=== PATIENT | female | born 1965 | race Caucasian/White ===

== ENCOUNTER → 2019-12-22 15:49 | Outpatient (CLI) | payer BC, SELFPAY ==
--- NOTE | ~2019-12-22 | US_ITS ---
EXAMINATION: US venous doppler [facility] DATE: 12/22/2019 16:43 INDICATION: Lower limb edema. TECHNIQUE: Grayscale ultrasound images without and with compression and Doppler ultrasound images of the bilateral lower extremity veins were obtained. COMPARISON: None. FINDINGS: The visualized portions of right common femoral vein, profunda (deep) femoral vein, femoral vein, pop liteal vein, peroneal veins, posterior tibial veins, and greater saphenous vein outflow are patent. The visualized portions of left common femoral vein, profunda femoral vein, femoral vein, popliteal v ein, peroneal veins, posterior tibial veins, and greater saphenous vein outflow are patent. IMPRESSION: 1. No deep venous thrombosis. Reviewed, dictated and finalized at location A. [facility]
== END ==
PROVIDERS: PCP Internal Medicine; Visit Provider Internal Medicine
DX: M79.89 Other specified soft tissue disorders (principal); R79.1 Abnormal coagulation profile
CPT/HCPCS: 93970

== ENCOUNTER 2024-09-17 10:00 | Outpatient (RCR) | payer MEDICARE, SELFPAY ==
--- NOTE | 2024-08-31 16:21 | OPREHPOC ---
Outpatient Therapy Plan of Care This is a Multidisciplinary Plan of Care that may contain components documented by all disciplines (PT, OT, and ST.) PT Problem 1 PT Problem #1 Knowledge Deficit PT Goal 1 Goal / Goal Update 1. Patient will perform independent HEP 2. Patient will verbalize urge suppression strategies Target Visit 2 PT Problem 2 PT Problem #2 Impaired Strength PT Goal 1 Goal / Goal Update 1. Improve pelvic floor strength to 4/5 to reduce incontinence 2. Improve pelvic floor endurance to 10 seconds to reduce incontinence Target Visit 5 PT Problem 3 PT Problem #3 Impaired Functional ADLs PT Goal 1 Goal / Goal Update 1. Patient will be able to hold urge to void at least 30 minutes 2. Patient will report incontinence no more than 1 time per week 3. Patient will need no more than 2 pads per day Target Visit 5
--- NOTE | 2024-08-31 16:21 | PTOPEVAL1 ---
Assessment and note entered by Lennie Shah DPT Evaluation Information Assessment Status Evaluation ICD-10 Condition Codes (PT) Weakness R53.1,Urge incontinence N39.41,Mixed incontinence N39.46,Stress incontinence N39.3 Subjective Information Pt reports stress incontinence that started in 2016. Had been given an indwelling catheter the year prior due to CHF. Recently has been wearing a pad all the time, 7-8 a day. Incontinence 2 times per day. Uses a purewick at night. Voids 6-7 times a day. Can hold urge to void up to 10 minutes and does get urge incontinence when taking off her pants. Denies pain with urination. BM every other day since bariatric surgery in May. Denies fecal incontinence. No history of pelvic pain. Pt has never been . Uterine ablation in 2005. No b/b history. Patient goal: not drip all the time and not have to wear so many pads. Pt states if she goes out in the community she will not take her water pill and always knows where the bathroom is, sometimes does not go out because of concern about making it to the bathroom. Returns to [place] in 6 months. Recently saw urologist and goes back soon. Reported Pain Level Pain Score 0: Self Report Assessment PT Clinical Summary The patient is presenting to skilled therapy with a several year history of worsening stress and urge incontinence. She presents with decreased pelvic floor strength and endurance as well as decreased hip and abdominal strength which are contributing to her daily incontinence and difficulty holding urge to void more than 10 minutes. The patient reports going through 7-8 pads a day and avoiding taking her diuretic at times due to incontinence. She will highly benefit from skilled therapy to address functional strength in order to reduce incontinence and restore full function. Plan of Care Interventions Manual Therapy,Neuro Re-education,Patient/ Caregiver Education,Therapeutic Activities, Therapeutic Exercise PT Services Indicated Yes Treatment Frequency and 1 time a week for 5 visits Duration These treatments will address the objective and functional deficits as defined above. The patient will be advanced safely and appropriately in order for the patient to progress towards his/her prior level of function. Additional exercises will be introduced and as well as a comprehensive home exercise program upon discharge, if needed, ?to ensure carryover of functional gains achieved in the clinic. This treatment plan has been reviewed and agreement upon by the patient.
--- NOTE | 2024-10-08 11:09 | PTOPDC ---
Assessment and note entered by Lennie Shah DPT Evaluation Information Assessment Status Discharge - Pt Not Present ICD-10 Condition Codes (PT) Weakness R53.1,Urge incontinence N39.41,Mixed incontinence N39.46,Stress incontinence N39.3 Subjective Information - Assessment PT Clinical Summary Patient is self discharging at this time as her symptoms have improved. Plan of Care PT Services Indicated No
== END 2024-10-08 16:21 | disposition home or self-care (01) ==
LOC: ANHGOSHPT 10:00
PROVIDERS: PCP Family Medicine; Visit Provider Family Medicine
DX: N39.3 Stress incontinence (female) (male) (principal)
CPT/HCPCS: 97112; 97161; 97530